=== PATIENT | female | born 1990 | race Caucasian/White ===

== ENCOUNTER → 2025-05-26 07:18 | Outpatient (REF) | payer OTHER, SELFPAY | LOC: HWRAD 07:18 | PROVIDERS: ATTENDING PHYSICIAN Nurse Practitioner Adult Health | DX: E04.1 Nontoxic single thyroid nodule (principal) | CPT/HCPCS: 76536 ==

== ENCOUNTER → 2025-05-30 09:43 | Outpatient (REF) | payer OTHER, SELFPAY | LOC: HWRAD 09:43 | PROVIDERS: ATTENDING PHYSICIAN Nurse Practitioner Adult Health | DX: R14.0 Abdominal distension (gaseous) (principal) | CPT/HCPCS: 76830; 76856 ==

== ENCOUNTER → 2025-09-11 15:30 | Outpatient (REF) | payer OTHER, SELFPAY | LOC: RAD 15:30 | DX: R10.12 Left upper quadrant pain (principal); R11.0 Nausea | CPT/HCPCS: 76700 ==